=== PATIENT | male | born 1965 | race African-American/Black ===

== ENCOUNTER 2019-03-17 15:32 | Outpatient (CLI) | payer MEDICARE ==
--- NOTE | 2019-03-17 15:52 | RAD ---
2 views chest. HISTORY: Dyspnea. PA and lateral views of the chest obtained. The lungs are well aerated. No evidence of active intrathoracic disease seen. No evidence of effusion s, pneumonia or pneumothorax seen. IMPRESSION: Normal 2 views chest.
== END 2019-03-17 15:33 | disposition home or self-care (01) ==
LOC: MADEKG 15:32
PROVIDERS: ATTEND Family Medicine
DX: R06.00 Dyspnea, unspecified (principal)
CPT/HCPCS: 71046; 93005; 93010

== ENCOUNTER 2025-06-11 13:10 | Emergency (ER) | payer MEDICARE, OTHER ==
[2025-06-11] MEDS ORDERED: Acetaminophen 325 MG TAB ONE (14:19)
== END 2025-06-11 15:15 | disposition home or self-care (01) ==
LOC: MADERS 13:10
DX: S82.51XA Displaced fracture of medial malleolus of right tibia, initial encounter for closed fracture (principal); I73.9 Peripheral vascular disease, unspecified; I13.0 Hypertensive heart and chronic kidney disease with heart failure and stage 1 through stage 4 chronic kidney disease, or unspecified chronic kidney disease; I50.9 Heart failure, unspecified; N18.9 Chronic kidney disease, unspecified; I25.10 Atherosclerotic heart disease of native coronary artery without angina pectoris; E78.5 Hyperlipidemia, unspecified; F17.210 Nicotine dependence, cigarettes, uncomplicated; W54.1XXA Struck by dog, initial encounter
CPT/HCPCS: 99283